=== PATIENT | female | born 1990 | race Caucasian/White ===

== ENCOUNTER 2017-10-05 19:07 | Emergency (ER) | payer OTHER ==
[2017-10-05 19:18] VITALS: BP 110/67
--- NOTE | 2017-10-05 20:18 | ED Physician Documentation ---
History of Present Illness - Stated complaint Stated Complaint: ELECTRICAL SHOCK R HAND - Chief complaint Chief Complaint: General - History obtained from History obtained from: Patient - History of Present Illness Timing: Other (She is active duty in the [employer], was Working on a P3 and she got shocked to the thumb and forefinger of the left hand. No chest pain or syncope. No possibility of .) Review of Systems Constitutional: reports: Reviewed and negative Throat: reports: Reviewed and negative Cardiac: reports: Reviewed and negative Respiratory: reports: Reviewed and negative PD PAST MEDICAL HISTORY - Past Medical History Past Medical History: No Cardiovascular: None Respiratory: None Neuro: None Endocrine/Autoimmune: None GI: None SERVICE SUPERINTENDENT: None : None HEENT: None Psych: None Musculoskeletal: None Derm: None - Past Surgical History Past Surgical History: Yes General: Other - Allergies Allergies/Adverse Reactions: Allergies Allergy/AdvReac Type Severity Reaction Status Date / Time No Known Drug Allergies Allergy Verified 10/05/17 19:18 - Social History Does the pt smoke?: No Smoking Status: Never smoker Does the pt drink ETOH?: No Does the pt have substance abuse?: No - Immunizations Immunizations are current?: Yes - POLST Patient has POLST: No PD ED PE NORMAL - Vitals Vital signs reviewed: Yes - General General: Alert and oriented X 3, No acute distress - Cardiac Cardiac: RRR, No murmur - Extremities Extremities: Other (She has very small monsalve to the tips of the left first and second fingers without tenderness or limited range of motion, no swelling. Normal cap refill. Normal sensation.) - Neuro Neuro: Alert and oriented X 3, Normal speech Results - Vitals Vitals: Vital Signs - 24 hr 10/05/17 19:13 Temperature 36.7 C Heart Rate 67 Respiratory 16 Rate Blood Pressure 110/67 O2 Saturation 100 Oxygen O2 Source Room air - EKG (time done) 1930 Rate: Rate (enter#) (85) Rhythm: NSR [place]: Normal Intervals: Normal DC QRS: Normal Ischemia: Normal ST segments Computer interpretation: Agree with computer Departure - Departure Disposition: 01 Home, Self Care Clinical Impression: Electrical shock of hand Qualifiers: Encounter type: initial encounter Qualified Code(s): T75.4XXA - Electrocution, initial encounter Condition: Good Record reviewed to determine appropriate education?: Yes Comments: You can wash the small monsalve with soap and water and keep them covered with a Band-Aid and some Neosporin. Return if worse. Follow-up with your doctor. Forms: Activity restrictions
[2017-10-05] MEDS ORDERED: BACITRACIN OINT TOP ONE (20:24)
== END 2017-10-05 20:39 | disposition home or self-care (01) ==
LOC: ED 19:07
DX: T75.4XXA Electrocution, initial encounter (principal); T23.042A Burn of unspecified degree of multiple left fingers (nail), including thumb, initial encounter; T31.0 Burns involving less than 10% of body surface; W86.8XXA Exposure to other electric current, initial encounter; Y99.1 Military activity
CPT/HCPCS: 93005; 99283; A9270